=== PATIENT | female | born 1945 | race African-American/Black ===

== ENCOUNTER 2017-04-23 18:53 | Inpatient (IN) | payer MEDICARE ==
[~2017-04-23] VITALS: Ht 157.5 cm; Wt 104.3 kg
[~2017-04-23 18:53] MED LIST: ASPIRIN325 MG PO; BENADRYL50 MG PO; DULCOLAX STOOL100 MG PO; FLUTICASONE PRO16 GM NS; HYDRALAZINE HCL25 MG PO; HYDROCODONE-APA1 TAB PO; LEVAQUIN250 MG PO; LIPITOR20 MG PO; LOPRESSOR50 MG PO; LOTRISONE CREAM45 GM TOPICAL; MIRALAX17 GM PO; MUCINEX600 MG PO; NASONEX NASAL S17 GM NS; NITROSTAT0.4 MG SL; PLAVIX75 MG PO; PROAIR HFA8.5 GM INH; RENVELA2.4 GM PO; TUMS500 MG PO
--- NOTE | 2017-04-23 19:00 | NUR ---
RECIEVED PT TO 2129 FROM [facility] VIA EMS. PT A&O. LEFT AVF (+,+). PLACED ON TELEMETRY, 64 SR. NO IV ACCESS, RECIEVED IN REPORT THAT [facility] NURSE AND EMS WERE UNABLE TO OBTAIN IV ACCESS, WILL ASK CHARGE NURSE TO ATTEMPT ACCESS.
--- NOTE | 2017-04-23 19:30 | NUR ---
Jono JACKSON CHARGE NURSE AT BED AT BED SIDE, UNABLE TO ESTABLISH PIV ACCESS, WILL ASK FLOW CORDINATOR GIO MITCHELL.
[2017-04-23] MEDS ORDERED: HYDROCHLOROTHIA50 MG PO (19:34)
[2017-04-23] MEDS ORDERED: CELEXA40 MG PO (19:39)
[2017-04-23] MEDS ORDERED: LASIX40 MG PO (19:39)
[2017-04-23] MEDS ORDERED: XANAX0.5 MG PO (19:40)
[2017-04-23] MEDS ORDERED: ZOFRAN ODT4 MG/UDTAB PO (19:40)
--- NOTE | 2017-04-23 20:37 | NUR ---
Armin GUNDERSON, THE SECOND NURSE TO ATTEMPT TO OBTAIN AN IV ACCESS WAS UNSUCCESSFUL CALL PLACED TO ICU AND ASKED IF ICU NURSE CAN COME AND ATTEMPT TO SITE PIV.
--- NOTE | 2017-04-23 20:45 | NUR ---
STEPHEN LEMOS FROM ICU AT [facility] TO ATTEMPT PIV.
--- NOTE | 2017-04-23 21:40 | NUR ---
DILAYSIS IN PROGRESS, HS MEDS HELD UNTIL DIALYSIS IS OVER.
--- NOTE | 2017-04-23 21:58 | NUR ---
DIALYSIS COMPLETE, RE[facility] 2 LIT[facility] REMOVED, PT STABLE. HS MEDS GIVEN.
--- NOTE | 2017-04-23 22:06 | NUR ---
HD TREATMENT COMPLETED, PATIENT HAD A 2 HR TREATMENT ON 1K, TOLERATED WELL, NET FLUID REMOVAL OF 2 LITERS. SHE WAS A DIFFICULT VENOUS STICK.
--- NOTE | 2017-04-23 22:06 | NUR ---
SANDWHICH TRAY GIVEN WITH FRESH ICE WATER GIVEN.
--- NOTE | 2017-04-23 22:57 | NUR ---
UP TO BR.
[2017-04-23 23:41] VITALS: BMI 41.9
[2017-04-23 23:51] VITALS: BP 164/73
--- NOTE | 2017-04-24 03:32 | NUR ---
RESTING WITH EYES CLOSED, RESPERATIONS EVEN, NO S/S DISTRESS NOTED.
[2017-04-24 04:00] VITALS: BP 173/81
[2017-04-24 06:31] LABS: HEMATOCRIT 29.1 % (36.0-48.0); HEMOGLOBIN 9.8 g/dL (12-16); LYMPHOCYTES 17.5 % (15-50); MCH 27.5 pg (26.0-34.0); MCHC 33.7 g/dL (31.0-37.0); MCV 81.5 fL (80.0-100.0); NEUTROPHILS 64.9 % (40-80); PLATELET COUNT 170 10x3/uL (130-400); RBC 3.57 10x6/uL (4.00-5.40); WBC 5.1 10x3/uL (4.8-10.8)
[2017-04-24 06:47] LABS: ANION GAP 24.2 mmol/L (8-16); CARBON DIOXIDE 19.6 mmol/L (21.0-32.0); CREATININE - SERUM 15.8 mg/dL (0.6-1.3); POTASSIUM - SERUM 4.8 mmol/L (3.5-5.1)
[2017-04-24 06:48] LABS: PHOSPHOROUS 9.3 mg/dL (2.5-4.9)
[2017-04-24 06:49] LABS: CALCIUM 6.1 mg/dL (8.5-10.1)
--- NOTE | 2017-04-24 07:15 | NUR ---
AM ROUNDS - PT RESTING QUIETLY, DENIES NEEDS AT THIS TIME. RR EVEN AND UNLABORED. INTRODUCED SELF PRIMARY RN FOR THE DAY AND PLACED NAME ON WHITE BOARD. BED IN LOWEST POSTION, CALL LIGHT IN REACH, WILL CTM.
[2017-04-24 08:00] VITALS: BP 181/60
[2017-04-24 11:31] VITALS: BP 140/59
[2017-04-24 15:12] VITALS: BP 138/54
--- NOTE | 2017-04-24 18:19 | NUR ---
PT RESTING QUIELTY, FAMILY AT BEDSIDE. RR EVEN AND UNLABORED. DENIES NEEDS AT THIS TIME. WILL GIVE REPORT ON PT CONDITION FOR THE DAY. BED IN LOWEST POSTION, CALL LIGHT IN REACH, ROOM FREE OF CLUTTER.
--- NOTE | 2017-04-24 20:03 | NUR ---
INITIAL ROUNDS COMPELTED AT 1915 HRS. PT DENEID ANY DISCOMFORT. ASSESSMENT COMPLETED AT 2000 HRS. SR PER CM HR 53. PT HAS 2+ GENERALIZED EDEMA. NO IV ACCESS. LAVF WITH GOOD BRUIT AND THRILL. SMALL SORE NOTED TO L LOWER LEG. EVELYN PARADA ORINETED TO PERSON, PLACE AND TIME. DENIED ANY DISCOMFORT. SR UP X2, CALL LIGHT WITHIN REACH.
[2017-04-24 22:00] VITALS: BP 154/68
--- NOTE | 2017-04-24 23:52 | NUR ---
ZOFRAN 4MG ODT GIVEN FOR C/O NAUSEA. WILL CONTINUE TO MONITOR.
[2017-04-25] VITALS: BP 155/69
--- NOTE | 2017-04-25 02:29 | NUR ---
PT RESTING WIT EYES CLOSED. RESP EVEN AND REGULAR. SR UP X2, CALL LIGHT WITHIN REACH.
--- NOTE | 2017-04-25 04:53 | NUR ---
PT AWAKE;DENIES AN DISCOMFORT. WILL CONTINUE TO MONITOR.
[2017-04-25 05:03] VITALS: BP 160/73
--- NOTE | 2017-04-25 06:23 | NUR ---
VSS THROUGHOUT NGITH. SB PER CM IN MID 50'S DURING SHIFT. ZOFRAN 4MG ODT GIVEN FOR C/O NAUSEA. PT REFUSES AM LAB STATING IT CAN BE DRAWN IN DIALYSIS. NEEDS MET; WILL CONTINUE TO MONITOR.
[2017-04-25 08:00] VITALS: BP 147/63
--- NOTE | 2017-04-25 10:16 | NUR ---
ALERT AND ORIENTED X4. TAKEN TO DIALYSIS VIA BED. CONTINUE PLAN OF CARE AND SAFETY PRECAUTIONS.
[2017-04-25 11:45] LABS: ANION GAP 18.2 mmol/L (8-16); CALCIUM 7.1 mg/dL (8.5-10.1); CARBON DIOXIDE 26.2 mmol/L (21.0-32.0); CREATININE - SERUM 7.9 mg/dL (0.6-1.3); PHOSPHOROUS 4.6 mg/dL (2.5-4.9); POTASSIUM - SERUM 3.4 mmol/L (3.5-5.1)
[2017-04-25 11:47] LABS: BASOPHILS 0.4 % (0-2); EOSINOPHILS 1.9 % (0-7); HEMATOCRIT 31.3 % (36.0-48.0); IMMATURE GRANULOCYTES 0.2 % (0-5); LYMPHOCYTES 18.7 % (15-50); MCH 26.5 pg (26.0-34.0); MCHC 31.9 g/dL (31.0-37.0); MCV 82.8 fL (80.0-100.0); MEAN PLATELET VOLUME 9.7 fL (7.4-10.4); MONOCYTES 8.9 % (2-11); NEUTROPHILS 69.9 % (40-80); PLATELET COUNT 174 10x3/uL (130-400); RBC 3.78 10x6/uL (4.00-5.40); RDW 15.3 % (11.5-14.5); WBC 4.7 10x3/uL (4.8-10.8)
[2017-04-25 12:21] VITALS: Ht 157.5 cm; Wt 104.3 kg
[2017-04-25 16:00] VITALS: BP 140/61
--- NOTE | 2017-04-25 19:30 | NUR ---
REPORT RECEIVED. SHIFT ASSESSMENT COMPLETE PER FLOW SHEET. SITTING ON SIDE OF BED. AWAKE AND ORIENTED TO PERSON, TIME, AND PLACE. PUPILS EQUAL, REACTIVE TO LIGHT. MUCOUS MEMBRANES MOIST. WEARS GLASSES. RR 18 ROOM AIR. L ARM FISTULA. TELEMETRY MONITORING SINUS RHYTHM. S1S2 PRESENT. RADIAL AND POPLITEAL PULSES PALP BILAT. LUNG SOUNDS CLEAR ALL LOBES. BS ACTIVE X4. RENAL ADA DIET. SKIN WARM AND DRY. SPEECH CLEAR. FULL ROM IN UPPER AND LOWER EXTREMETIES. ROUTE AGENT STRENGHT STRONG. GAIT STEADY. SEE FLOW SHEET FOR COMPLETE ASSESSMENT. CALL LIGHT WITHIN REACH. BED IN LOWEST POSITION. WILL CONTINUE TO MONITOR.
--- NOTE | 2017-04-25 20:47 | NUR ---
AWAKE, LAYING IN BED. MEDS ADMINISTERED PER EMAR. DENIES FURTHER NEEDS AT THIS TIME. CALL LIGHT WITHIN REACH. BED IN LOWEST POSITION.
--- NOTE | 2017-04-25 22:00 | NUR ---
SITTING IN CHAIR, AWAKE AND ALERT. DENIES NEEDS AT THIS TIME. CALL LIGHT WITHIN REACH. BED IN LOWEST POSITION.
[2017-04-25 23:00] VITALS: BP 179/64
--- NOTE | 2017-04-26 01:00 | NUR ---
LAYING IN BED, SLEEPING. CALL LIGHT WITHIN REACH. BED IN LOWEST POSITION.
--- NOTE | 2017-04-26 03:00 | NUR ---
LAYING IN BED SLEEPING. DENIES NEEDS AT THIS TIME. CALL LIGHT WITHIN REACH. BED IN LOWEST POSITION.
--- NOTE | 2017-04-26 04:09 | NUR ---
AWAKE IN BED RAYCO GIVEN PER REQUEST FOR CHRONIC RHEUMATOID ARTHRITIS PAIN. CALL LIGHT WITHIN REACH. BED IN LOWEST POSITION. WILL CONTINUE TO MONITOR.
--- NOTE | 2017-04-26 05:03 | NUR ---
SLEEPING IN BED. DENIES NEEDS AT THIS TIME. CALL LIGHT WITHIN REACH.
[2017-04-26 05:13] LABS: BASOPHILS 0.3 % (0-2); EOSINOPHILS 2.6 % (0-7); HEMATOCRIT 31.3 % (36.0-48.0); HEMOGLOBIN 10.2 g/dL (12-16); IMMATURE GRANULOCYTES 0.3 % (0-5); LYMPHOCYTES 17.8 % (15-50); MCH 27.2 pg (26.0-34.0); MCHC 32.6 g/dL (31.0-37.0); MCV 83.5 fL (80.0-100.0); MEAN PLATELET VOLUME 9.8 fL (7.4-10.4); MONOCYTES 10.8 % (2-11); NEUTROPHILS 68.2 % (40-80); PLATELET COUNT 182 10x3/uL (130-400); RBC 3.75 10x6/uL (4.00-5.40); RDW 15.3 % (11.5-14.5)
[2017-04-26 05:19] LABS: WBC 6.1 10x3/uL (4.8-10.8)
[2017-04-26 05:34] LABS: CARBON DIOXIDE 23.4 mmol/L (21.0-32.0)
[2017-04-26 05:36] VITALS: BP 130/46
[2017-04-26 05:38] LABS: PHOSPHOROUS 7.2 mg/dL (2.5-4.9)
[2017-04-26 05:39] LABS: ANION GAP 22.3 mmol/L (8-16); CALCIUM 5.9 mg/dL (8.5-10.1); POTASSIUM - SERUM 4.7 mmol/L (3.5-5.1)
--- NOTE | 2017-04-26 06:00 | NUR ---
SPOKE WITH DR. ROMO ABOUT CRITICAL LAB. NO NEW OREDERS RECEIVED.
--- NOTE | 2017-04-26 06:00 | NUR ---
LAYING IN BED SLEEPING. DENIES NEEDS AT THIS TIME. CALL LIGHT WITHIN REACH. BED IN LOWEST POSITION.
[2017-04-26 08:00] VITALS: BP 124/53
[2017-04-26 12:03] VITALS: BP 136/76
--- NOTE | 2017-04-26 13:05 | NUR ---
Patient Name: DINAH MCCARTY Admission Status: Elective Accout number: [id number] Admission Date: 04-23-2017 : 1945 Admission Diagnosis:HYPERKALEMIA Attending: ROOSEVELT Current LOS: 3 Anticipated DC Date: 04-26-2017 Planned Disposition: Home Primary Insurance: MEDICARE A & B Discharge Planning Comments: * Is the patient Alert and Oriented? Yes 0 * How many steps to enter\exit or inside your home? 5 0 * PCP [facility] 0 * [facility]acy [facility] 0 * Preadmission Environment Home with Family 0 * ADLs Independent 0 * Equipment Nebulizer Walker 0 * Other Equipment [employer] MEDICAL SUPPLY - MEDICAL EQUIPMENT PROVIDER 0 * List name and contact numbers for known caregivers / representatives who currently or will assist patient after discharge: CASSY MURRY, DAUGHTER, [phone] 0 * Community resources currently utilized Other 0 * Please name any agencies selected above. OUTPATIENT DIALYSIS, [facility], [place], M/W/F, 1030, [facility] 0 * Additional services required to return to the preadmission environment? No 0 * Can the patient safely return to the preadmission environment? Yes 0 * Has this patient been hospitalized within the prior 30 days at any hospital? No 0 CM MET WITH PT IN ROOM TO DISCUSS DISCHARGE PLANNING AND NEEDS. PT REPORTS LIVING AT HOME INDEPENDENTLY WITH HER ADULT SON. PT HAS NEBULIZER AND WALKER FROM [employer]. PT HAS NO OUTSIDE SERVICES ASSISTING IN THE HOME. CM DISCUSSED AVAILABILITY OF HOME HEALTH, REHAB SERVICES AND MEDICAL EQUIPMENT. PT DENIES DISCHARGE NEEDS, REPORTS HER DAUGHTER WILL PICK HER UP FOR DISCHARGE HOME TODAY. PT REPORTS SHE HAS ASSISTANCE OF HER SON AND TWO DAUGHTERS AT HOME. IMPORTANT MESSAGE FROM MEDICARE PROVIDED AND EXPLAINED. PT ASKED ABOUT GETTING AN ELECTRIC WHEELCHAIR AND REPLACEMENT DIABETIC SHOES. CM DIRECTED PT TO SPEAK TO HER PRIMARY DR REGARDING THOSE ITEMS. PT REPORTS UNDERSTANDING. CM DISCUSSED DIALYSIS COMPLIANCE, PT REPORTS UNDERSTANDING OF IMPORTANCE OF GOING SCHEDULED AND FOLLOWING HER DIET. PT DENIES DISCHARGE NEEDS AT THIS TIME. Planning Supervisor: Kyaw Saucedo
--- NOTE | 2017-04-26 13:46 | NUR ---
ALERT AND ORIENTED X4. NO IV. DISCHARGE INSTRUCTIONS GIVEN VERBALLY AND WRITTEN. PATIENT REQUESTING PRESCRIPTION FOR NORCO 10. NO PRESCRIPTION PROVIDED. REQUEST TO CALL DOCTOR. PAGER NUMBER FOR NO WORKING. PAGE ELIZABETH, RENAL BENCH CHEMIST.
--- NOTE | 2017-04-26 14:11 | NUR ---
ALERT AND ORIENTED X4. FAMILY ARRIVE TO TAKE HOME TO [place]. INFORM PATIENT TO ASK IN [place] TUESDAY FOR PAIN MEDICATION PER ELIZABETH. ESCORT TO RIDE VIA WHEELCHAIR. REMAINS FREE FROM INJURY.
== END 2017-04-26 16:37 | disposition home or self-care (01) | DRG 640 ==
LOC: D.M2 18:53
PROVIDERS: ADMIT Internal Medicine Nephrology
PROC: 5A1D60Z (ICD-10-PCS; principal; 2017-04-25)
DX: E87.5 Hyperkalemia (principal); N18.6 End stage renal disease; I12.0 Hypertensive chronic kidney disease with stage 5 chronic kidney disease or end stage renal disease; E11.22 Type 2 diabetes mellitus with diabetic chronic kidney disease; Z99.2 Dependence on renal dialysis; Z91.15 Patient's noncompliance with renal dialysis; D63.1 Anemia in chronic kidney disease; E87.2 Acidosis; I25.10 Atherosclerotic heart disease of native coronary artery without angina pectoris; Z86.73 Personal history of transient ischemic attack (TIA), and cerebral infarction without residual deficits

== ENCOUNTER 2017-08-14 18:22 | Inpatient (IN) | payer MEDICARE ==
[~2017-08-14 18:22] MED LIST changes: +CELEXA40 MG PO; +HYDROCHLOROTHIA50 MG PO; +LASIX40 MG PO; +XANAX0.5 MG PO; +ZOFRAN ODT4 MG/UDTAB PO
--- NOTE | 2017-08-14 21:33 | NUR ---
PT ARRIVED VIA AMBULANCE FROM [facility] TO ROOM 2106 @ 2039. ALERT/ORIETED/AMBULATORY. LEFT ARM AVF, RESERVE LEFT SIGN PLACED ON DOOR. ADMISSION ASSESSMENT AND HISTORY COMPLETED. HOME MEDS REVIEWED. CALL TO ELIZABETH SRINIVASAN SALES AGENT FOOD VENDING SERVICE FOR ORDERS.
--- NOTE | 2017-08-14 22:18 | NUR ---
SPOKE WITH ELIZABETH SRINIVASAN APN. REVIEWED TRANSFER PAPERWORK FROM [place]. NEW ORDERS RECIEVED. FLOW COORDINATOR IN ROOM CURRENTLY DRAWING SOME NOW LAB.
[2017-08-14 22:51] LABS: ALBUMIN 3.1 g/dL (3.4-5.0); BILIRUBIN - TOTAL 0.53 mg/dL (0.2-1.3); CARBON DIOXIDE 21.5 mmol/L (21.0-32.0); CREATININE - SERUM 16.3 mg/dL (0.6-1.3); PROTEIN - SERUM 7.1 g/dL (6.4-8.2)
[2017-08-14 22:54] LABS: ANION GAP 24.9 mmol/L (8-16); CALCIUM 6.4 mg/dL (8.5-10.1); POTASSIUM - SERUM 6.4 mmol/L (3.5-5.1)
--- NOTE | 2017-08-14 23:00 | NUR ---
REVIEWED NEW LABWORK. POTASSIUM NOW DOWN TO 6.4 AND PT IS STILL HAVING BOWEL MOVEMENTS. HER CALCIUM IS 6.4, SAME PRIOR LAB. WILL SEE WHAT AM LAB VALUES ARE AND THEN DR GONZALEZ WILL BE ROUNDING.
--- NOTE | 2017-08-14 23:45 | NUR ---
PT'S SON ARRIVED FROM [place] TO SEE HIS MOM. CURRENTLY VISITING IN ROOM.
[2017-08-14 23:53] VITALS: BP 148/48
[2017-08-15 01:20] VITALS: BP 148/48; BMI 42.2
[2017-08-15] MEDS ORDERED: ATIVAN0.5 MG PO (01:59)
[2017-08-15] MEDS ORDERED: NEURONTIN 300300 MG PO (02:02)
[2017-08-15] MEDS ORDERED: HYDROCHLOROTHIA25 MG PO (02:05)
[2017-08-15] MEDS ORDERED: METOPROLOL TART50 MG PO (02:07)
[2017-08-15] MEDS ORDERED: NITROSTAT0.4 MG SL (02:10)
[2017-08-15 05:20] VITALS: BP 155/66
[2017-08-15 06:47] LABS: ALBUMIN 3.2 g/dL (3.4-5.0); BILIRUBIN - TOTAL 0.52 mg/dL (0.2-1.3); CARBON DIOXIDE 20.6 mmol/L (21.0-32.0); CREATININE - SERUM 16.7 mg/dL (0.6-1.3); MAGNESIUM - SERUM 2.3 mg/dL (1.8-2.4); PROTEIN - SERUM 6.6 g/dL (6.4-8.2)
[2017-08-15 07:04] LABS: ANION GAP 30.2 mmol/L (8-16)
[2017-08-15 07:06] LABS: CALCIUM 6.2 mg/dL (8.5-10.1); PHOSPHOROUS 11.7 mg/dL (2.5-4.9); POTASSIUM - SERUM 6.8 mmol/L (3.5-5.1)
--- NOTE | 2017-08-15 07:36 | NUR ---
AM ROUNDING DONE WITH PATIENT BEING NPO AT PRESENT TIME. ON ROOM AIR. RES. LEFT ARM WITH AVF. RIGHT UPPER ARM HAS A SALINE LOCK, PATIENT DOES VOID, URINE IN [place] HAT ALONG WITH STOOL. WILL CONTINUE TO FOLLOW.
[2017-08-15 08:23] VITALS: BP 172/54
[2017-08-15 12:30] VITALS: BMI 42.1
--- NOTE | 2017-08-15 12:50 | NUR ---
CALLED AND TALKED TO BENEDICTO IN DIALYSIS. SHE STATES THAT PATIENT IS DOING WELL.
--- NOTE | 2017-08-15 13:22 | NUR ---
BENEDICTO WITH DIALYSIS TO CALL AND STATES THAT PATIENT IS WANTING SOME PAIN MEDS. I EXPLAINED TO HER THAT AFTER HER DIALYSIS THEN SHE IS GOING TO A GASTRIC SCAN AND CAN NOT HAVE ANY PAIN MEDS UNTIL AFTER THE SCAN.
--- NOTE | 2017-08-15 15:30 | NUR ---
TO [place] FOR GASTRIC SCAN VIA WHEELCHAIR.
[2017-08-15 15:53] VITALS: BP 179/76
--- NOTE | 2017-08-15 16:05 | NUR ---
PAGE INTO ELIZABETH SRINIVASAN, SUPERVISOR FORCE ADJUSTMENT WITH RENAL TO SEE IF PATIENT CAN HAVE SOMETHING TO EAT PAST NM GASTRIC SCAN.
--- NOTE | 2017-08-15 16:07 | NUR ---
ELIZABETH TO CALL BACK WITH NEW ORDERS.
--- NOTE | 2017-08-15 16:58 | NUR ---
NOW PATIENT IS IN CT. WILL CHECK POC GLUCOSE LEVEL WHEN BACK.
[2017-08-15 19:00] VITALS: BP 180/70
--- NOTE | 2017-08-15 19:47 | NUR ---
PATIENT IS ASLEEP AT THIST TIME, CALL LIGHT IS WITHIN REACH.
[2017-08-16] VITALS: BP 183/75
[2017-08-16 04:00] VITALS: BP 185/87
--- NOTE | 2017-08-16 07:13 | NUR ---
AM ROUNDING DONE WITH LAB IN ROOM TRYING TO DRAW BLOOD FROM RIGHT HAND. RESERVE LEFT ARM WITH AVF, + BRUIT AND THRILL. ON ROOM AIR. RIGHT FA SEEN WITH SALINE LOCK. WILL MONITOR.
[2017-08-16 08:35] VITALS: BP 161/66
[2017-08-16 09:38] LABS: BASOPHILS 0.3 % (0-2); EOSINOPHILS 1.5 % (0-7); HEMATOCRIT 29.1 % (36.0-48.0); HEMOGLOBIN 9.2 g/dL (12-16); IMMATURE GRANULOCYTES 0.4 % (0-5); LYMPHOCYTES 13.3 % (15-50); MCHC 31.6 g/dL (31.0-37.0); MCV 82.2 fL (80.0-100.0); MEAN PLATELET VOLUME 9.8 fL (7.4-10.4); MONOCYTES 11.6 % (2-11); NEUTROPHILS 72.9 % (40-80); PLATELET COUNT 190 10x3/uL (130-400); RBC 3.54 10x6/uL (4.00-5.40); RDW 14.6 % (11.5-14.5); WBC 7.8 10x3/uL (4.8-10.8)
--- NOTE | 2017-08-16 10:12 | NUR ---
0941-PAST AM MEDS, PATIENT IS MADE NPO FOR CT TODAY.
[2017-08-16 10:15] LABS: INR 1.09 (0.85-1.17)
[2017-08-16 10:18] LABS: ALBUMIN 2.7 g/dL (3.4-5.0); BILIRUBIN - TOTAL 0.41 mg/dL (0.2-1.3); CARBON DIOXIDE 25.1 mmol/L (21.0-32.0); CHOL - HDL RATIO 3.6 ratio (2.3-4.1); LDL-HDL RATIO 2.1 ratio (1.5-3.5); PROTEIN - SERUM 5.8 g/dL (6.4-8.2)
[2017-08-16 10:26] LABS: ANION GAP 23.6 mmol/L (8-16); CREATININE - SERUM 12.3 mg/dL (0.6-1.3); PHOSPHOROUS 8.1 mg/dL (2.5-4.9); POTASSIUM - SERUM 4.7 mmol/L (3.5-5.1)
[2017-08-16 10:27] LABS: CALCIUM 6.3 mg/dL (8.5-10.1)
--- NOTE | 2017-08-16 10:31 | NUR ---
LAB TO CALL WITH CRITICAL CALCIUM, PAGE INTO CLAUDIA RENDON APN TO LET HER BE AWARE OF THIS. AWAITING CALL BACK.
[2017-08-16 12:02] VITALS: BP 160/78
--- NOTE | 2017-08-16 12:22 | NUR ---
PATIENT TO RETURN FROM CT WITH NONE WORKING IV. UNABLE TO RE-SITE. GABY MCMULLEN, LATEX SPOOLER NURSE CALLED TO HELP.
--- NOTE | 2017-08-16 12:30 | NUR ---
GABY MCMULLEN RN TO GET 20 G TO RIGHT AC. I CALLED AND SPOKE TO DELONTE IN RADIOLOGY TO LET HER KNOW THAT SHE HAS A WORKING IV.
--- NOTE | 2017-08-16 13:24 | NUR ---
TO CT VIA [facility]
--- NOTE | 2017-08-16 14:35 | NUR ---
PATIENT TO RETURN FROM CT AGAIN. WAS TOLD MY RAVINDER IN CT THAT IV ACCESS TO RIGHT AC IS "NOT WORKING". PAGE INTO GABY MCMULLEN STRATEGIC PROCUREMENT MANAGER NURSE.
--- NOTE | 2017-08-16 14:38 | NUR ---
PATIENT STILL NPO UNTIL RAVINDER TALKD TO RADIOLOGIST R/T POSSIBLE MRI WITH AND WITHOUT.
--- NOTE | 2017-08-16 17:25 | NUR ---
ASSISTED TO CHAIR FOR SUPPER. STILL WITH SALINE LOCK TO RIGHT UPPER ARM. DENIES NEEDS. WILL CONTINUE TO MONITOR.
--- NOTE | 2017-08-16 19:26 | NUR ---
PT IN CHAIR AT BEDSIDE RESTING QUIETLY. BREATHING EVEN AND UNLABORED. DENIES ANY PAIN OR NEEDS AT THIS TIME. CALL LIGHT WITHIN REACH.
[2017-08-16 21:28] VITALS: BP 131/44
--- NOTE | 2017-08-16 21:39 | NUR ---
PT DID NOT RECIEVE IV DOSE OF REGLAN AT 2100. IV NO LONGER PATENT.
--- NOTE | 2017-08-17 00:18 | NUR ---
PT IN BED RESTING QUIETLY WITH EYES CLOSED. BREATHING EVEN AND UNLABORED. BED IN LOW POSITION, CALL LIGHT WITHIN REACH. WILL CTM.
[2017-08-17 01:06] VITALS: BP 112/55
[2017-08-17 04:38] VITALS: BP 114/25
[2017-08-17 05:39] LABS: BASOPHILS 0.3 % (0-2); EOSINOPHILS 2.5 % (0-7); HEMATOCRIT 29.6 % (36.0-48.0); HEMOGLOBIN 9.4 g/dL (12-16); IMMATURE GRANULOCYTES 0.3 % (0-5); LYMPHOCYTES 15.9 % (15-50); MCHC 31.8 g/dL (31.0-37.0); MEAN PLATELET VOLUME 9.7 fL (7.4-10.4); MONOCYTES 11.7 % (2-11); NEUTROPHILS 69.3 % (40-80); PLATELET COUNT 191 10x3/uL (130-400); RBC 3.61 10x6/uL (4.00-5.40); RDW 14.7 % (11.5-14.5); WBC 6.7 10x3/uL (4.8-10.8)
[2017-08-17 06:03] LABS: CARBON DIOXIDE 24.9 mmol/L (21.0-32.0); CREATININE - SERUM 12.7 mg/dL (0.6-1.3); PHOSPHOROUS 8.6 mg/dL (2.5-4.9)
[2017-08-17 06:11] LABS: ANION GAP 23.4 mmol/L (8-16)
[2017-08-17 06:13] LABS: CALCIUM 5.8 mg/dL (8.5-10.1); POTASSIUM - SERUM 6.3 mmol/L (3.5-5.1)
--- NOTE | 2017-08-17 06:21 | NUR ---
RCVED CALL FROM LAB ABOUT CRITICAL LAB VALUES. POTASSIUM 6.3. CALCIUM 5.8. FILLED OUT SHEET AND PUTIN CHART FOR PHYSICIAN WHO IS TO BE ROUNDING SOON. WILL NOTIFY ONCOMING NURSE. PT IN BED RESTING QUIETLY. DENIES ANY PAIN OR NEEDS AT THIS TIME. WILL CTM.
--- NOTE | 2017-08-17 08:18 | NUR ---
INTRODUCED MYSELF TO PT PRIMARY RN FOR TODAYS SHIFT. PT A&O SITTING UP IN BEDSIDE CHAIR EATING BREAKFAST. SHIFT ASSESSMENT COMPLETED. PT IS A LEFT ARM RESERVE AND WILL HAVE DIALYSIS TODAY VIA L.ARM FISTULA. PT HAS NO CURRENT PIV ACCESS SHE HAS HAD 3 IN THE PAST COUPLE DAYS THAT CONTINUE TO INFILTRATE, WILL DISCUSS WITH PRIMARY DOCTOR ABOUT KEEPING PIV OUT OR GETTING VASCULAR NURSE TO REPLACE ONE NO VEINS ARE NOTED FOR NEW STICK. PROVIDED PT WITH PRN PAIN MEDICATION AND ANXIETY PILL SHE REQUESTED FOR CONSTANT BACK PAIN AND ANXIETY. PT DENIES ANY FURTHER NEEDS AT THIS TIME. CL IN REACH. WILL CPOC.
[2017-08-17 08:34] VITALS: BP 153/61
--- NOTE | 2017-08-17 09:45 | NUR ---
PT LEAVING FOR DIALYSIS AT THIS TIME. DENIES ANY CURRENT NEEDS AT THIS TIME. WILL CTM.
--- NOTE | 2017-08-17 12:00 | NUR ---
PT SUPPOPSE TO HAVE MRI DONE WITH CONTRAST HOWEVER RADIOLOGY CALLED STATING THEY WILL NOT AND CANNOT PERFORM IT IF PT IS ON DIALYSIS IT WILL HAVE TO BE WITHOUT CONTRAST, ALSO PT HAS ALREADY HAD LUNCH SO THEY WOULDNT BE ABLE TO PERFORM IT UNTIL LATER TONIGHT OR TOMORROW. CALLED OFFICE TO NOTIFY HER AND ASK IF IT CAN BE DONE TOMORROW AND AWAITING ANSWER.
--- NOTE | 2017-08-17 13:57 | NUR ---
PT BACK FROM DIALYSIS AND IN HER BED. RR NONLABORED ON RA. VSS. PT STATES SHE SLEPT ALMOST THE WHOLE TIME AND DENIES ANY CURRENT NEEDS, WILL ORDER HER A LUNCH TRAY AND CPOC.
[2017-08-17 15:54] VITALS: BP 139/61
--- NOTE | 2017-08-17 16:15 | NUR ---
FSBS 110 NO COVERAGE REQUIRED PER SS INSULIN. PT SITTING UP IN BED ABOUT TO EAT DINNER TRAY. PT STATES SHE HAS HAD A GOOD DAY OVERALL AND DENIES ANY CURRENT NEEDS AT THIS TIME. CL IN REACH, BED IN LOWEST, SIDE RAILS X2. WILL CPOC.
--- NOTE | 2017-08-17 16:20 | NUR ---
NO CALL BACK FROM AND MRI IS ABOUT TO LEAVE. WILL PLAN FOR IT TOMORROW UNLESS OTHERWISE SPECIFIED AND WILL KEEP AN EYE OUT TO DISCUSS WITH AND GET IT CHANGED TO W/O CONTRAST.
--- NOTE | 2017-08-17 19:49 | NUR ---
PT IN BED RESTING QUIETLY. DENIES ANY PAIN OR NEEDS AT THIS TIME. BREATHING EVEN AND UNLABORED. BED IN LOW POSITION, CALL LIGHT WITHIN REACH. WILL CTM.
[2017-08-17 21:42] VITALS: BP 114/67; BP 182/68
--- NOTE | 2017-08-18 05:53 | NUR ---
PT DID NOT RECIEVE MORNING MEDS DUE TO BEING NPO FOR UPCOMING MRI.
[2017-08-18 06:17] LABS: BASOPHILS 0.5 % (0-2); EOSINOPHILS 2.7 % (0-7); IMMATURE GRANULOCYTES 0.4 % (0-5); LYMPHOCYTES 14.1 % (15-50); MCH 25.8 pg (26.0-34.0); MCHC 31.3 g/dL (31.0-37.0); MCV 82.7 fL (80.0-100.0); MEAN PLATELET VOLUME 9.6 fL (7.4-10.4); NEUTROPHILS 68.3 % (40-80); PLATELET COUNT 193 10x3/uL (130-400); RBC 3.87 10x6/uL (4.00-5.40); RDW 14.4 % (11.5-14.5); WBC 7.4 10x3/uL (4.8-10.8)
[2017-08-18 06:42] LABS: ALBUMIN 2.9 g/dL (3.4-5.0); ANION GAP 19.9 mmol/L (8-16); BILIRUBIN - DIRECT 0.07 mg/dL (0.00-0.30); BILIRUBIN - INDIRECT 0.27 mg/dL (0.00-1.00); BILIRUBIN - TOTAL 0.34 mg/dL (0.2-1.3); CARBON DIOXIDE 26.6 mmol/L (21.0-32.0); CREATININE - SERUM 10.3 mg/dL (0.6-1.3); POTASSIUM - SERUM 5.5 mmol/L (3.5-5.1); PROTEIN - SERUM 6.3 g/dL (6.4-8.2)
[2017-08-18 06:58] LABS: PHOSPHOROUS 6.3 mg/dL (2.5-4.9)
[2017-08-18 06:59] LABS: CALCIUM 6.6 mg/dL (8.5-10.1)
--- NOTE | 2017-08-18 07:24 | NUR ---
AM ROUNDS - PT IS IN BED AND AWAKE AT THIS TIME. PT IS A LEFT ARM RESERVE. PT IS ON ROOM AIR. REFUSES SCD. NO IV. DIALYISIS MON, WED, FRI. BED AT LOWEST POSITION. CALL GONZALEZ IN USE/REACH. SIDE RAILS UP X2. NO NEEDS AT THIS TIME. WILL CONTIUE TO MONITOR
[2017-08-18 08:53] VITALS: BP 148/50
[2017-08-18 11:57] VITALS: BP 132/55
--- NOTE | 2017-08-18 12:55 | NUR ---
Nutrition Follow Up: Pt is eating 100% meal avg on a renal ADA diet. +BM 08/15/17. Labs reviewed. Meds noted including Reglan, Lasix. Rec continue current diet. RD following.
[2017-08-18 15:09] VITALS: BP 137/55
--- NOTE | 2017-08-18 17:20 | NUR ---
Patient Name: DINAH MCCARTY Admission Status: Elective Accout number: [id number] Admission Date: 08-14-2017 : 1945 Admission Diagnosis:NAUSEA WITH VOMITING, UNSPECIFIED Attending: Sabino Gil Current LOS: 4 Anticipated DC Date: 08-19-2017 Planned Disposition: Home with Home Health Primary Insurance: MEDICARE A & B PLANNED PROVIDER: NO PROVIDER PREFERENCE Discharge Planning Comments: * Is the patient Alert and Oriented? Yes 0 * How many steps to enter\exit or inside your home? 5 0 * PCP DR. MURILLO 0 * Pharmacy [facility] * Preadmission Environment Home with Family 0 * ADLs Partial Dependent 0 * Partial ADLs (Assistance needed) Bathing 0 * Equipment Glucometer Walker 0 * Other Equipment [employer] MEDICAL SUPPLY - PROVIDER PREFERENCE 0 * List name and contact numbers for known caregivers / representatives who currently or will assist patient after discharge: CASSY MURRY, DTR, 0 * Community resources currently utilized Other 0 * Please name any agencies selected above. OUTPATIENT DIALYSIS, [facility], MWF, 1100AM, [facility] 0 * Additional services required to return to the preadmission environment? No 0 * Can the patient safely return to the preadmission environment? Yes 0 * Has this patient been hospitalized within the prior 30 days at any hospital? No 0 CM MET WITH PT IN ROOM TO DISCUSS DISCHARGE PLANNING AND NEEDS. PT REPORTS LIVING AT HOME WITH HER ADULT DAUGHTER. WHO ASSISTS PT WITH BATHING AND TRANSPORTATION. SHE WANT DAUGHTER TO BE PAID CAREGIVER, [facility] APPLICATION. PT HAS GLUCOMETER AND WALKER FROM [employer]. PT HAS NO OUTSIDE SERVICES ASSISTING IN THE HOME. PT ATTENDS DIALYSIS THREE DAYS PER WEEK, TRANSPORT BY HER DAUGHTER. CM DISCUSSED AVAILABILITY OF HOME HEALTH, REHAB SERVICES AND MEDICAL EQUIPMENT. PT WANTS HOME HEALTH FOR NURSING AND PHYSICAL THERAPY, NO PREFERENCE ON PROVIDER; CHOICE SIGNED, REPORTS HER DAUGHTER WILL PICK HER UP FOR DISCHARGE HOME. IMPORTANT MESSAGE FROM MEDICARE PROVIDED AND EXPLAINED. CM TO ARRANGE HOME HEALTH WITH PHYSICIAN AGREEMENT AND ORDERS. Washer [employer]: Kyaw Saucedo
--- NOTE | 2017-08-18 18:48 | NUR ---
PT SITTING IN THE CHAIR EATING DINNER. NO NEEDS AT THIS TIME. WILL COTNIUE TO MONITOR
[2017-08-18 21:18] VITALS: BP 160/60
--- NOTE | 2017-08-19 00:53 | NUR ---
WENT IN TO ADMINISTER PTS 00:30 REGLAN ORDERED, PT RESTING COMFORTABLY. PT IS EASILY ROUSABLE TO VERBAL STIMULI, REQUESTING CUP OF COFFEE. NO OTHER NEED. CONTINUE TO MONITOR PT CLOSELY. BED LOW, CALL LIGHT IN REACH, SIDE RAILS X 2, HOB 20 DEGREES.
[2017-08-19 01:16] VITALS: BP 166/59
[2017-08-19 04:49] VITALS: BP 150/66
[2017-08-19 05:54] LABS: BASOPHILS 0.6 % (0-2); EOSINOPHILS 3.5 % (0-7); HEMATOCRIT 29.4 % (36.0-48.0); HEMOGLOBIN 9.1 g/dL (12-16); IMMATURE GRANULOCYTES 0.4 % (0-5); LYMPHOCYTES 16.2 % (15-50); MCH 25.6 pg (26.0-34.0); MCV 82.8 fL (80.0-100.0); MEAN PLATELET VOLUME 10.3 fL (7.4-10.4); MONOCYTES 12.1 % (2-11); NEUTROPHILS 67.2 % (40-80); PLATELET COUNT 202 10x3/uL (130-400); RBC 3.55 10x6/uL (4.00-5.40); RDW 14.2 % (11.5-14.5); WBC 6.9 10x3/uL (4.8-10.8)
[2017-08-19 06:17] LABS: ANION GAP 19.8 mmol/L (8-16); CARBON DIOXIDE 26.2 mmol/L (21.0-32.0); CREATININE - SERUM 11.5 mg/dL (0.6-1.3); PHOSPHOROUS 7.1 mg/dL (2.5-4.9)
[2017-08-19 06:32] LABS: CALCIUM 6.4 mg/dL (8.5-10.1)
[2017-08-19 08:00] VITALS: BP 145/58
--- NOTE | 2017-08-19 11:00 | NUR ---
AM ROUNDS - PT IN BED AND APPEARS TO BE SLEEPING AT THIS TIME WITH EQUAL AND NON LABORED BREATHING. PT HAS NO IV. LEFT ARM RESERVE, AVF. PT IS ON ROOM AIR. BED AT LOWEST POSITION. CALL GONZALEZ IN USE/REACH. SIDE RAILS UP X2. BED AT LOWEST POSITION. WILL IOANA OT MONITOR
[2017-08-19 12:00] VITALS: BP 126/48
--- NOTE | 2017-08-19 18:44 | NUR ---
22 GUAGE X1 STICK INSERTED TO R.WRIST FOR CT WITH CONTRAST. PT NPO AND AWARE. CALLED CT AND RAVINDER IS AWARE, WILL GET IT DONE TONIGHT.
--- NOTE | 2017-08-19 19:39 | NUR ---
PT SITTING IN CHAIR AT BEDSIDE RESTING. AROUSES TO TOUCH DENIES NEEDS AT THIS TIME.
[2017-08-19 21:01] VITALS: BP 154/65
[2017-08-20] VITALS: BP 143/49
[2017-08-20 04:00] VITALS: BP 146/69
--- NOTE | 2017-08-20 05:28 | NUR ---
PT RESTING WITH EYES CLOSED. RESP EVEN AND REGULAR. SR UP X2, CALL LIGHT WITHIN REACH.
--- NOTE | 2017-08-20 07:20 | NUR ---
RECEIVED REPORT. ASSUMED CARE OF PATIENT. CALL LIGHT WITHIN REACH. ALERT/ORIENTED. NO DISTRESS. DENIES NEEDS.
[2017-08-20 07:25] LABS: CARBON DIOXIDE 24.3 mmol/L (21.0-32.0); CREATININE - SERUM 9.2 mg/dL (0.6-1.3); POTASSIUM - SERUM 5.3 mmol/L (3.5-5.1)
[2017-08-20 07:35] LABS: PHOSPHOROUS 5.3 mg/dL (2.5-4.9)
[2017-08-20 07:36] LABS: CALCIUM 6.7 mg/dL (8.5-10.1)
[2017-08-20 08:00] VITALS: BP 165/59
[2017-08-20 08:15] LABS: BASOPHILS 0.4 % (0-2); EOSINOPHILS 4.3 % (0-7); HEMATOCRIT 29.2 % (36.0-48.0); IMMATURE GRANULOCYTES 0.6 % (0-5); LYMPHOCYTES 14.2 % (15-50); MCH 25.7 pg (26.0-34.0); MCHC 30.8 g/dL (31.0-37.0); MCV 83.4 fL (80.0-100.0); MEAN PLATELET VOLUME 10.2 fL (7.4-10.4); MONOCYTES 19.6 % (2-11); NEUTROPHILS 60.9 % (40-80); PLATELET COUNT 194 10x3/uL (130-400); RDW 14.2 % (11.5-14.5); WBC 5.4 10x3/uL (4.8-10.8)
--- NOTE | 2017-08-20 08:19 | NUR ---
MEDICATED FOR BACK PAIN AT THIS TIME. NO DISTRESS. CONSUMING AM MEAL.
--- NOTE | 2017-08-20 11:12 | NUR ---
MEDICATED FOR NAUSEA AT THIS TIME. FSBS 126. NO INSULIN COVERAGE REQUIRED PER SLIDING SCALE.
[2017-08-20 12:00] VITALS: BP 124/49
[2017-08-20 16:00] VITALS: BP 145/56
--- NOTE | 2017-08-20 16:11 | NUR ---
FSBS 105. NO INSULIN COVERAGE PER SLIDING SCALE.
--- NOTE | 2017-08-20 16:13 | NUR ---
22 GAUGE IV REMOVED FROM RIGHT WRIST. PRESSURE HELD FOR 2 MINUTES. NO BLEEDING FROM SITE AFTER 2 MINUTES. 2X2 APPLIED AND SECURED WITH TAPE. CATHETER TIP INTACT. PATIENT DISCHARGING TO HOME SOON.
--- NOTE | 2017-08-20 17:25 | NUR ---
1705 DISCHARGE INSTRUCTIONS PROVIDED TO PATIENT AND HER DAUGHTER. FAMILY NOR PATIENT HAD ANY QUESTIONS. PATIENT VERBALZIED UNDERSTANDING OF ALL INSTRUCTIONS PROVIDED. 1720 PATIENT LEFT UNIT VIA WHEELCHAIR. PATIENT DISCHARGED TO HOME VIA PRIVATE CAR WITH HER DAUGHTER. PATIENT LEFT UNIT WITH ALL PERSONAL BELONGINGS. PATIENT IN NO DISTRESS LEAVING UNIT. PATIENT THANKED ALL STAFF SHE WAS LEAVING UNIT FOR SUCH GREAT CARE DURING HER STAY.
== END 2017-08-20 17:20 | disposition home or self-care (01) | DRG 640 ==
LOC: D.M2 18:22
PROVIDERS: Internal Medicine Gastroenterology; ADMIT Internal Medicine Nephrology
PROC: 5A1D70Z Performance of Urinary Filtration, Intermittent, Less than 6 Hours Per Day (ICD-10-PCS; principal; 2017-08-15)
DX: E87.5 Hyperkalemia (principal); N18.6 End stage renal disease; I12.0 Hypertensive chronic kidney disease with stage 5 chronic kidney disease or end stage renal disease; Z91.15 Patient's noncompliance with renal dialysis; E11.22 Type 2 diabetes mellitus with diabetic chronic kidney disease; Z99.2 Dependence on renal dialysis; E11.43 Type 2 diabetes mellitus with diabetic autonomic (poly)neuropathy; K31.84 Gastroparesis; D63.1 Anemia in chronic kidney disease; J44.9 Chronic obstructive pulmonary disease, unspecified; E83.39 Other disorders of phosphorus metabolism; M54.5 Low back pain; R16.0 Hepatomegaly, not elsewhere classified; D18.09 Hemangioma of other sites; Z86.73 Personal history of transient ischemic attack (TIA), and cerebral infarction without residual deficits; Z87.891 Personal history of nicotine dependence